=== PATIENT | female | born 1985 | race Caucasian/White ===

== ENCOUNTER 2021-07-30 09:55 | Emergency (ER) | payer OTHER ==
[~2021-07-30] VITALS: Ht 152.4 cm; Wt 63.5 kg
[2021-07-30 10:04] VITALS: BP 175/106
== END 2021-07-30 10:29 | disposition left against medical advice (07) ==
LOC: ER 09:55
DX: R05.9 Cough, unspecified (principal); R51.9 Headache, unspecified; R20.0 Anesthesia of skin; J45.909 Unspecified asthma, uncomplicated; I10 Essential (primary) hypertension; Z53.21 Procedure and treatment not carried out due to patient leaving prior to being seen by health care provider